=== PATIENT | female | born 1975 | race Two or more races ===

== ENCOUNTER → 2024-09-14 | Outpatient (CLI) | payer OTHER ==
--- NOTE | 2024-09-18 12:52 | MM ---
Reason for Exam: Screening (asymptomatic). Last mammogram was performed 3 year(s) and 10 month(s) ago. Patient History: Menarche at age 15. First Full-Term at age 22. Last menstrual period: 09/10/2024 Risk Values: Allison 5 year model risk: 0.8%. NCI Lifetime model risk: 8.5%. Prior Study Comparison: 02/07/2017 Left Diagnostic Mammogram, [facility]. 02/12/2017 Left Diagnostic Mammogram, [facility]. 07/19/2017 Left Diagnostic Mammogram, [facility]. 12/09/2017 Left Diagnostic Mammogram, [facility]. 05/09/2018 Bilateral Screening Mammogram, [facility]. 11/16/2020 Bilateral Screening Mammogram, [facility]. Tissue Density: The breasts are heterogeneously dense, which may obscure small masses. Findings: Analyzed By CAD. A benign-appearing oil cyst in the left breast is redemonstrated. There is no suspicious group of microcalcifications or new suspicious mass in either breast. Overall Assessment: Benign, BI-RAD 2 Management: Screening Mammogram of both breasts in 1 year. . Patient should continue monthly self-breast exams. A clinical breast exam by your physician is recommended on an annual basis. This exam should not preclude additional follow-up of suspicious palpable abnormalities. Note on Allison scores and lifetime risk: 1. A Allison score greater than 3% is considered moderate risk. If this is the case, consider specialist referral to assess eligibility for a risk reducing agent. 2. If overall lifetime risk for the development of breast cancer is 20% or higher, the patient may qualify for future screening with alternating mammogram and breast MRI. [facility], , 09/18/2024 12:49 PM. Electronically signed and approved by: Harrison Nickerson M.D.
== END | disposition home or self-care (01) ==
LOC: RADMAMWWP 10:01
PROVIDERS: ATTEND Family Medicine
DX: Z12.31 Encounter for screening mammogram for malignant neoplasm of breast (principal); R92.333 Mammographic heterogeneous density, bilateral breasts
CPT/HCPCS: 77063; 77067

== ENCOUNTER 2024-09-29 12:21 | Day surgery (SDC) | payer OTHER ==
[~2024-09-29 12:21] MED LIST: LIDOCAINE 1% (10MG/ML) FOR IV START INTRADERMA PRN
[2024-09-29] MEDS: IV FLUID CONTINUATION 1,000 ML IV ONE (13:17)
[2024-09-29 13:26] VITALS: TEMP 97.8
[2024-09-29] MEDS: LACTATED RINGERS 1,000 ML IV SCH (13:31)
[2024-09-29] MEDS ORDERED: PROPOFOL 10 MG/ML 20 ML VIAL IV ONE (14:03)
--- NOTE | 2024-09-29 14:29 | P.PCN ---
Date of Procedure: 09/29/24 Procedure(s) Performed: BRIEF HISTORY: Patient is a 48-year-old pleasant white female scheduled for an elective colonoscopy as a part of screening for colon cancer. PROCEDURE PERFORMED: Colonoscopy. PREOPERATIVE DIAGNOSIS: Screening for colon cancer. IV sedation per Anesthesia. PROCEDURE: After informed consent was obtained, the patient, was brought into the endoscopy unit. IV sedation was administered by Anesthesia under continuous monitoring. Digital rectal examination was normal. Initially the Olympus CF-160 flexible video colonoscope was then inserted in the rectum, gradually advanced into the cecum without any difficulty. Careful examination was performed as the scope was gradually being withdrawn. Ileocecal valve and the appendiceal orifice were visualized and appeared normal. Prep was excellent. Mucosa of the cecum, ascending colon, transverse colon, descending colon, sigmoid colon, and rectum appeared normal. Retroflexion was performed in the rectum and small internal hemorrhoid were seen. The patient tolerated the procedure well. IMPRESSION: Normal-appearing colon from rectum to cecum with no evidence of colorectal neoplasia. Small internal hemorrhoids. RECOMMENDATIONS: Findings of this examination were discussed with the patient as well as her family. She was advised to have repeat screening colonoscopy in 10 years..
[2024-09-29 14:50] VITALS: BP 135/78; PULSE 100; RESP 16
== END 2024-09-29 15:02 | disposition home or self-care (01) ==
LOC: ORWHC2ENDO 12:21
PROVIDERS: ATTEND Internal Medicine Gastroenterology
DX: Z12.11 Encounter for screening for malignant neoplasm of colon (principal); K64.8 Other hemorrhoids; E78.5 Hyperlipidemia, unspecified; F41.9 Anxiety disorder, unspecified; F32.A Depression, unspecified; Z79.899 Other long term (current) drug therapy
CPT/HCPCS: 81025; 45378; J2704